=== PATIENT | female | born 1960 | race Hispanic/Latino ===

== ENCOUNTER 2017-04-07 17:06 | Emergency (ER) | payer BC ==
[2017-04-07] MEDS ORDERED: Adacel (T-DAP) 0.5 ML VIAL ONE (18:36)
[2017-04-07] MEDS ORDERED: Sulfameth/Trimethoprim DS 800-160mg TAB ONE (18:36)
[2017-04-07] MEDS ORDERED: HYDROcodone/Acetaminophen 10/325 mg Tablet ONE (18:36)
== END 2017-04-07 19:10 | disposition home or self-care (01) ==
LOC: BURERS 17:06
DX: L60.0 Ingrowing nail (principal)
CPT/HCPCS: 11765; 36416; 90471; 90715; J2001

== ENCOUNTER 2019-10-23 17:24 | Emergency (ER) | payer BC, SELFPAY | END 2019-10-23 18:47 | disposition home or self-care (01) | LOC: BURERS 17:24 | DX: S10.91XA Abrasion of unspecified part of neck, initial encounter (principal); W22.8XXA Striking against or struck by other objects, initial encounter | CPT/HCPCS: 99282 ==

== ENCOUNTER 2019-11-27 14:58 | Outpatient (CLI) | payer OTHER ==
--- NOTE | 2019-11-27 16:39 | RAD ---
RIGHT KNEE THREE VIEWS: 11/27/19 No fracture was seen but there is a moderate sized joint effusion present. The joint surfaces appear normal. The joint space is not unduly narrowed. IMPRESSION: Joint effusion. The possibility of an internal derangement might be considered. POS: HOME
== END 2019-11-27 14:59 | disposition home or self-care (01) ==
LOC: BURRAD 14:58
PROVIDERS: ATTEND Nurse Practitioner Family
DX: M25.561 Pain in right knee (principal); M25.461 Effusion, right knee

== ENCOUNTER 2022-03-06 09:07 | Emergency (ER) | payer OTHER ==
[2022-03-06] MEDS ORDERED: Ibuprofen 800 MG TAB ONE (09:37)
[2022-03-06] MEDS ORDERED: Amoxicillin/Potassium Clav 875 MG TAB ONE (09:37)
== END 2022-03-06 09:50 | disposition home or self-care (01) ==
LOC: BURERS 09:07
DX: L08.9 Local infection of the skin and subcutaneous tissue, unspecified (principal)
CPT/HCPCS: 99283

== ENCOUNTER 2022-08-02 11:02 | Outpatient (CLI) | payer OTHER | END 2022-08-02 11:03 | disposition home or self-care (01) | LOC: BURRAD 11:02 | PROVIDERS: ATTEND Family Medicine | DX: S20.211A Contusion of right front wall of thorax, initial encounter (principal) ==